=== PATIENT | female | born 1960 | race African-American/Black ===

== ENCOUNTER 2019-05-25 23:35 | Emergency (ER) | payer OTHER ==
[2019-05-25] MEDS ORDERED: Ketorolac Tromethamine 30 MG/ML VIAL ONE (23:53)
== END 2019-05-26 00:23 | disposition home or self-care (01) ==
LOC: ERS 23:35
DX: S00.03XA Contusion of scalp, initial encounter (principal); I10 Essential (primary) hypertension; E11.9 Type 2 diabetes mellitus without complications; K21.9 Gastro-esophageal reflux disease without esophagitis; W20.8XXA Other cause of strike by thrown, projected or falling object, initial encounter
CPT/HCPCS: 99283; J1885